=== PATIENT | male | born 2000 | race Two or more races ===

== ENCOUNTER 2022-11-21 09:20 | Emergency (ER) | payer OTHER ==
[~2022-11-21] VITALS: Ht 182.9 cm; Wt 74.8 kg
[2022-11-21] MEDS ORDERED: PRILOSEC OTC20 MG PO (09:30)
[2022-11-21] MEDS ORDERED: BENTYL10 MG/1 ML (09:30)
[2022-11-21] MEDS ORDERED: PEPCID AC20 MG (09:31)
== END 2022-11-21 15:15 | disposition home or self-care (01) ==
LOC: ER 09:20
DX: K52.9 Noninfective gastroenteritis and colitis, unspecified (principal)

== ENCOUNTER 2025-07-11 10:32 | Outpatient (CLI) | payer OTHER ==
[~2025-07-11 10:32] MED LIST: BENTYL10 MG/1 ML; PEPCID AC20 MG; PRILOSEC OTC20 MG PO
[2025-07-11 11:50] LABS: BASO % 0.4 % (0.1-1.2); EOS # 0.19 (0.04-0.54); EOS % 4.2 % (0.7-7.0); LYMPH # 1.41 (1.18-3.74); LYMPH % 31.3 % (19.3-53.1); MEAN PLATELET VOLUME 11.40 fl (9.4-12.4); MONO # 0.38 (0.24-0.82); MONO % 8.4 % (4.7-12.5); NEUT # 2.49 (1.56-6.13); NEUT % 55.5 % (34.0-71.1); RED CELL DISTRIBUTION WIDTH 12.3 % (11.6-14.4)
[2025-07-11 13:18] LABS: GAMMA GLUTAMIL TRANSFERASE 47.0 U/L (15-85)
[2025-07-11 13:23] LABS: % SATURACION 39.7 % (20-50); ALT/SGPT 71.0 U/L (12-78); AST/SGOT 54.0 U/L (15-37); BILIRUBIN TOTAL 1.22 mg/dL (0.3-1.2); BUN CREA RATIO 9.0 (7.0-25.0); CREATININE SERUM 0.95 mg/dL (0.70-1.30); FE 112.0 ug/dl (65-175); GFR 96.59; GLOBULINA 2.4 G/DL (2.4-3.5); GLUCOSE FASTING 71.0 mg/dL (65-100); LDH 174.0 U/L (87-241); OSMOLALITY SERUM 280.0 MOSM/KG (275-295)
[2025-07-11 13:58] LABS: FOLIC ACID > 20.00 ng/ml (4.78-20); VITAMIN D3 25 HYDROXY 14.28 ng/ml (30-120)
== END 2025-07-11 10:33 | disposition home or self-care (01) ==
LOC: LAB 10:32
PROVIDERS: ATTEND Internal Medicine Hematology & Oncology
DX: R71.8 Other abnormality of red blood cells (principal); R94.5 Abnormal results of liver function studies; D50.8 Other iron deficiency anemias; I10 Essential (primary) hypertension; R74.02 Elevation of levels of lactic acid dehydrogenase [LDH]; K76.89 Other specified diseases of liver; E11.9 Type 2 diabetes mellitus without complications; R79.9 Abnormal finding of blood chemistry, unspecified; D63.8 Anemia in other chronic diseases classified elsewhere; M32.9 Systemic lupus erythematosus, unspecified; M35.89 Other specified systemic involvement of connective tissue; M35.00 Sjogren syndrome, unspecified; M06.9 Rheumatoid arthritis, unspecified; K74.3 Primary biliary cirrhosis; D51.1 Vitamin B12 deficiency anemia due to selective vitamin B12 malabsorption with proteinuria; D51.0 Vitamin B12 deficiency anemia due to intrinsic factor deficiency; E06.3 Autoimmune thyroiditis; R74.8 Abnormal levels of other serum enzymes

== ENCOUNTER 2025-09-26 09:47 | Outpatient (CLI) | payer OTHER ==
[2025-09-26 11:52] LABS: BASO % 0.5 % (0.1-1.2); EOS # 0.23 (0.04-0.54); EOS % 4.2 % (0.7-7.0); LYMPH # 1.44 (1.18-3.74); LYMPH % 26.2 % (19.3-53.1); MEAN PLATELET VOLUME 11.70 fl (9.4-12.4); MONO # 0.50 (0.24-0.82); MONO % 9.1 % (4.7-12.5); NEUT # 3.29 (1.56-6.13); NEUT % 59.8 % (34.0-71.1); RED CELL DISTRIBUTION WIDTH 11.9 % (11.6-14.4); URINE APPEARANCE Clear; URINE BILIRRUBIN Negative (NEGATIVE); URINE BLOOD Negative; URINE COLOR Yellow; URINE GLUCOSE Negative (NEGATIVE); URINE KETONE Negative (NEGATIVE); URINE LEUKOCYTE Negative; URINE NITRATE Negative; URINE PROTEIN Negative (NEGATIVE); URINE UROBILINOGEN 0.2 E.U./dl
[2025-09-26 12:25] LABS: URINE BACTERIA 3.4 uL (0.0-1933); URINE EPITHELIAL CELLS 0.1 uL (0.0-38.8); URINE RBC 0.1 uL (0.0-20.8); URINE WBC 0.5 uL (0.0-23.2)
[2025-09-26 12:26] LABS: URINE CAST 0.00 uL (0.0-1.40)
[2025-09-26 12:31] LABS: ALT/SGPT 45.0 U/L (12-78); AST/SGOT 19.0 U/L (15-37); BILIRUBIN TOTAL 1.14 mg/dL (0.3-1.2); BUN CREA RATIO 15.0 (7.0-25.0); CREATININE SERUM 0.91 mg/dL (0.70-1.30); FE 126.0 ug/dl (65-175); GFR 101.51; GLOBULINA 3.0 G/DL (2.4-3.5); GLUCOSE FASTING 78.0 mg/dL (65-100); LDH 142.0 U/L (87-241); OSMOLALITY SERUM 281.0 MOSM/KG (275-295)
[2025-09-26 13:10] LABS: FOLIC ACID 15.07 ng/ml (4.78-20)
[2025-09-30 08:10] LABS: hav igm Negative (Negative); hep b c Negative (Negative); hep b s ag Negative (Negative)
[2025-10-02 08:09] LABS: g6pd quant 219 (156-397)
== END 2025-09-26 10:02 | disposition home or self-care (01) ==
LOC: LAB 09:47
PROVIDERS: ATTEND Internal Medicine Hematology & Oncology
DX: D50.8 Other iron deficiency anemias (principal); I10 Essential (primary) hypertension; R74.02 Elevation of levels of lactic acid dehydrogenase [LDH]; K76.89 Other specified diseases of liver; E53.8 Deficiency of other specified B group vitamins; K51.40 Inflammatory polyps of colon without complications; K90.89 Other intestinal malabsorption; D53.0 Protein deficiency anemia; R94.5 Abnormal results of liver function studies; E55.9 Vitamin D deficiency, unspecified; D55.0 Anemia due to glucose-6-phosphate dehydrogenase [G6PD] deficiency; B20 Human immunodeficiency virus [HIV] disease; B17.9 Acute viral hepatitis, unspecified; Z11.59 Encounter for screening for other viral diseases; N39.0 Urinary tract infection, site not specified; R80.9 Proteinuria, unspecified; R94.4 Abnormal results of kidney function studies